=== PATIENT | female | born 1990 | race American Indian/Alaskan Native ===

== ENCOUNTER 2016-08-22 09:34 | Emergency (ER) | payer MEDICAID ==
[2016-08-22 11:19] LABS: Bilirubin,Urine NEG (Negative); Blood,Urine NEG (Negative); Ketones,Urine 20 mg/dL (Negative); Leukocyte Esterase,Urine NEG (Negative); Mucus,Urine FEW /HPF; Nitrite,Urine NEG (Negative); Protein,Urine <15 mg/dL mg/dL (Negative); WBC,Urine < 1.0 /HPF (0.0-6.0)
[2016-08-22 11:21] LABS: Basophils % (Auto) 0.2 % (0.0-1.8); Eosinophils % (Auto) 0.6 % (0.0-4.3); Hematocrit 37.2 % (30.3-42.9); Mean Corpuscular HGB Conc 32 % (30-34); Mean Corpuscular Hemoglobin 30 pg (28-32); Mean Corpuscular Volume 93 fl (79-97); Platelet Count 267 K/mm3 (140-440); Red Cell Distribution Width 13.7 % (13.2-15.2); White Blood Count 6.4 K/mm3 (4.5-11.0)
[2016-08-22 11:25] LABS: Anion Gap 15 mmol/L; Blood Urea Nitrogen 6 mg/dL (7-17); Calcium 8.8 mg/dL (8.4-10.2); Carbon Dioxide 23 mmol/L (22-30); Chloride 102.7 mmol/L (98-107); Glucose 86 mg/dL (65-100); Potassium 4.9 mmol/L (3.6-5.0); Sodium 136 mmol/L (137-145)
[2016-08-22 17:00] VITALS: BP 125/74
--- NOTE | 2016-08-22 17:06 | Emergency Department Report ---
HPI - General Chief Complaint: Abdominal Pain Time Seen by Provider: 08/22/16 16:55 - HPI HPI: Room 10 The patient is a 25-year-old female presenting with a chief complaint pelvic pain. The patient states she is approximately 7 weeks and 2 weeks ago developed intermittent suprapubic pelvic pain. She was so subjective fever. Patient admits to nausea but denies vomiting or diarrhea. Patient admits to mild constipation. Patient denies any preceding trauma. Patient denies vaginal bleeding. Patient denies dysuria or hematuria Location: Suprapubic region Duration: Intermittent 2 weeks Quality: "Hunger pangs" Severity: Moderate Modifying factors: [see above] Context: [see above] Mode of transportation: Unknown ED Past Medical Hx - Past Medical History Previous Medical History?: No - Surgical History Past Surgical History?: No - Family History Family history: no significant - Social History Smoking Status: Never Smoker Substance Use Type: None - Medications Home Medications: Home Medications Medication Instructions Recorded Confirmed Last Taken Type Promethazine /Codeine 5 ml PO Q6H PRN #4 oz 08/05/15 Unknown Rx [Phenergan/Codeine 6.25-10 mg/5Ml] Vit W-Ca,Fe,FA(<1 mg) 1 each PO QDAY #90 tablet 08/22/16 Unknown Rx [ Vitamins] ED Review of Systems ROS: Stated complaint: ABD PAIN Other details as noted in HPI Comment: All other systems reviewed and negative Constitutional: fever (subjective) Eyes: denies: eye pain, eye discharge, vision change ENT: denies: ear pain, throat pain Respiratory: denies: cough, shortness of breath, wheezing Cardiovascular: denies: chest pain, palpitations Endocrine: no symptoms reported Gastrointestinal: abdominal pain, nausea, constipation. denies: vomiting, diarrhea Genitourinary: denies: urgency, dysuria, discharge, abnormal menses Musculoskeletal: denies: back pain, joint swelling, arthralgia Skin: denies: rash, lesions Neurological: denies: headache, weakness, paresthesias Psychiatric: denies: anxiety, depression Hematological/Lymphatic: denies: easy bleeding, easy bruising Physical Exam - Physical Exam Vital Signs: Vital Signs 08/22/16 08/22/16 10:27 16:56 Temperature 98 F Pulse Rate 63 69 Respiratory 16 Rate Blood Pressure 124/80 Blood Pressure 125/74 [Right] O2 Sat by Pulse 100 100 Oximetry Physical Exam: GENERAL: The patient is well-developed well-nourished female lying on stretcher not appearing to be in acute distress. [] HEENT: Normocephalic. Atraumatic. Extraocular motions are intact. Patient has moist mucous membranes. NECK: Supple. Trachea midline CHEST/LUNGS: Clear to auscultation. There is no respiratory distress noted. HEART/CARDIOVASCULAR: Regular. There is no tachycardia. There is no gallop rub or murmur. ABDOMEN: Abdomen is soft, nontender. Patient has normal bowel sounds. There is no abdominal distention. SKIN: There is no rash. There is no edema. There is no diaphoresis. NEURO: The patient is awake, alert, and oriented. The patient is cooperative. The patient has normal speech MUSCULOSKELETAL: There is no evidence of acute injury. ED Course Vital Signs 08/22/16 08/22/16 10:27 16:56 Temperature 98 F Pulse Rate 63 69 Respiratory 16 Rate Blood Pressure 124/80 Blood Pressure 125/74 [Right] O2 Sat by Pulse 100 100 Oximetry ED Medical Decision Making - Lab Data Result diagrams: 08/22/16 10:42 08/22/16 10:42 Laboratory Tests 08/22/16 08/22/16 08/22/16 10:42 10:42 10:42 WBC 6.4 RBC 4.00 Hgb 12.0 Hct 37.2 MCV 93 MCH 30 MCHC 32 RDW 13.7 Plt Count 267 Lymph % (Auto) 34.1 [place] % (Auto) 8.3 H Eos % (Auto) 0.6 Baso % (Auto) 0.2 Lymph # 2.2 [place] # 0.5 Eos # 0.0 Baso # 0.0 Seg Neutrophils % 56.8 Seg Neutrophils # 3.6 Sodium Potassium Chloride Carbon Dioxide Anion Gap BUN Creatinine Estimated GFR BUN/Creatinine Ratio Glucose Calcium HCG, Quant 35604 H Urine Color Yellow Urine Turbidity Clear Urine pH 7.0 Ur Specific [place] 1.019 Urine Protein <15 mg/dl Urine Glucose (UA) Neg Urine Ketones 20 Urine Blood Neg Urine Nitrite Neg Urine Bilirubin Neg Urine Urobilinogen 2.0 Ur Leukocyte Esterase Neg Urine WBC (Auto) < 1.0 Urine RBC (Auto) 2.0 U Epithel Cells (Auto) 1.0 Urine Mucus Few 08/22/16 10:42 WBC RBC Hgb Hct MCV MCH MCHC RDW Plt Count Lymph % (Auto) [place] % (Auto) Eos % (Auto) Baso % (Auto) Lymph # [place] # Eos # Baso # Seg Neutrophils % Seg Neutrophils # Sodium 136 L Potassium 4.9 Chloride 102.7 Carbon Dioxide 23 Anion Gap 15 BUN 6 L Creatinine 0.5 L Estimated GFR > 60 BUN/Creatinine Ratio 12.00 Glucose 86 Calcium 8.8 HCG, Quant Urine Color Urine Turbidity Urine pH Ur Specific [place] Urine Protein Urine Glucose (UA) Urine Ketones Urine Blood Urine Nitrite Urine Bilirubin Urine Urobilinogen Ur Leukocyte Esterase Urine WBC (Auto) Urine RBC (Auto) U Epithel Cells (Auto) Urine Mucus - Radiology Data Radiology results: report reviewed (pelvic ultrasound), image reviewed (pelvic ultrasound) Pelvic ultrasound (read by radiologist)-single live intrauterine gestation at approximately 6 weeks 0 days. EDC by ultrasound over the 2016. - Differential Diagnosis ectopic , threatened , subchorionic hemorrhage, UTI Critical care attestation.: If time is entered above; I have spent that time in minutes in the direct care of this critically ill patient, excluding procedure time. ED Disposition Clinical Impression: , Abdominal pain Disposition: DISCHARGED TO HOME OR SELFCARE Is pt being admited?: No Does the pt Need Aspirin: No Condition: Stable Instructions: (ED), Abdominal Pain (ED) Additional Instructions: Return to the emergency department immediately should you develop worsening symptoms, fever, inability to tolerate food or liquid or any other concerns. Prescriptions: Vit W-Ca,Fe,FA(<1 mg) [ Vitamins] 1 each PO QDAY #90 tablet Referrals: BOBBY MAHAN MD [Staff Physician] - [facility] (Dr. Mahan is an [employer]. Please follow up with her for further evaluation and to be established as a patient) Time of Disposition: 18:23
--- NOTE | 2016-08-22 18:11 | Ultrasound Report ---
FINAL REPORT PROCEDURE: US OB \T\lt; = 14 WEEKS FETUS TECHNIQUE: Real-time transabdominal and transvaginal sonography of the uterus, placenta, amniotic fluid, adnexa, and fetus was performed with image documentation. Measurements were obtained to determine age/size. M-mode Doppler was used to document heartbeat. CPT 48371 and 41314 HISTORY: pelvic pain COMPARISON: No prior studies are available for comparison. FINDINGS: ADDITIONAL GESTATION: None. Single live intrauterine is seen with crown-rump length of 3.8 millimeters corresponding to 6 weeks 0 days gestational age. Estimated date of delivery based on this ultrasound is April 17, 2017. heart rate is 121 beats per minute. Yolk sac is seen. Right ovary measures 3.5 x 1.8 x 2.5 cm. Left ovary measures 3.8 x 2.8 x 3.2 cm. It contains a complex cyst measuring 2.2 cm. No free pelvic fluid is seen. IMPRESSION: 1. Single live intrauterine gestation at approximately 6 weeks 0 days. 2. EDC by US April 17, 2017. 3. Complete anatomic survey at 18-20 weeks suggested.
--- NOTE | 2016-08-22 18:12 | Ultrasound Report ---
FINAL REPORT PROCEDURE: US OB TRANSVAGINAL TECHNIQUE: Real-time transabdominal and transvaginal sonography of the uterus, placenta, amniotic fluid, adnexa, and fetus was performed with image documentation. Measurements were obtained to determine age/size. M-mode Doppler was used to document heartbeat. CPT 92554 and 10567 HISTORY: pelvic pain COMPARISON: No prior studies are available for comparison. FINDINGS: ADDITIONAL GESTATION: None. Single live intrauterine is seen with crown-rump length of 3.8 millimeters corresponding to 6 weeks 0 days gestational age. Estimated date of delivery based on this ultrasound is April 17, 2017. heart rate is 121 beats per minute. Yolk sac is seen. Right ovary measures 3.5 x 1.8 x 2.5 cm. Left ovary measures 3.8 x 2.8 x 3.2 cm. It contains a complex cyst measuring 2.2 cm. No free pelvic fluid is seen. IMPRESSION: 1. Single live intrauterine gestation at approximately 6 weeks 0 days. 2. EDC by US April 17 2017. 3. Complete anatomic survey at 18-20 weeks suggested.
== END 2016-08-22 18:33 | disposition home or self-care (01) ==
LOC: ED 09:34
DX: O26.891 Other specified pregnancy related conditions, first trimester (principal); R10.9 Unspecified abdominal pain; Z3A.01 Less than 8 weeks gestation of pregnancy
CPT/HCPCS: 36415; 76801; 76817; 80048; 81001; 84702; 85025